=== PATIENT | female | born 1955 | race Caucasian/White ===

== ENCOUNTER → 2016-10-22 | Outpatient (CLI) | payer BC ==
--- NOTE | 2016-10-22 10:03 | CTL ---
EXAMINATION TYPE: CT Low Dose Lung DATE OF EXAM ORDERED: 10/22/2016 9:33 AM HISTORY: Tobacco abuse. Lung cancer screening CT DLP: [address]DI: 2.83 mGy Automated exposure control for dose reduction was used. SCREENING VISIT: First visit COMPARISON: None TECHNIQUE: Low dose computed tomography scan was performed through the chest at 1 mm thick sections a nd reconstructed images in the coronal plane at [address] DIAGNOSTIC QUALITY: Satisfactory FINDINGS: LUNG NODULES: None. Within the right upper lobe there is a noncalcified subsolid 3 mm pulmonary nodule Nodule Type: Subso lid on image # CT Image slide number [id number]. No other pulmonary nodules are identified. LUNGS: COPD: Severity: Mild. Biapical pleural-parenchymal thickening is also noted. Fibrosis: Severity: None. Lymph nodes: No enlarged lymph nodes are seen. Prominent precarinal 9 mm lymph node is noted. Other findings: RIGHT PLEURAL SPACE: Effusion: None Calcification: None Thickening: None Pneumothorax: None LEFT PLEURAL SPACE: Effusion: None Calcification: None Thickening: None Pneumothorax: None HEART: Heart Size: Not enlarged Coronary calcification: Minimal atheromatous changes are also seen of the thoracic aorta. Pericardial effusion: None OTHER FINDINGS: Upper abdomen: Limited images of the unenhanced upper abdomen are grossly unremarkable. Bony thorax: No suspicious osseous lesions. Supraclavicular region: No adenopathy Other: None IMPRESSION: Solitary 3 mm noncalcified subsolid right upper lobe pulmonary nodule. FOLLOW UP CT CHEST RECOMMENDATION: Annual low dose CT screening is recommended in this patient with a history of tobacco abuse as clinically indicated. CT LUNG RAD: 2
== END | disposition home or self-care (01) ==
LOC: RADCTMAIN 09:09
PROVIDERS: ATTEND Family Medicine
DX: Z12.2 Encounter for screening for malignant neoplasm of respiratory organs (principal); R91.1 Solitary pulmonary nodule; F17.200 Nicotine dependence, unspecified, uncomplicated

== ENCOUNTER → 2017-08-26 | Outpatient (CLI) | payer BC, MEDICARE ==
[2017-08-26 15:44] LABS: Blood Urea Nitrogen 15 mg/dL (7-17)
--- NOTE | 2017-08-26 16:36 | CT ---
EXAMINATION TYPE: CT chest w con DATE OF EXAM: 08/26/2017 COMPARISON: 10/22/2016 HISTORY: Hemoptysis x1 week ago. CT DLP: 344.3 mGycm Automated exposure control for dose reduction was used. CONTRAST: CT scan of the chest is performed with IV Contrast, patient injected with 80 mL of Omnipaque 300. FINDINGS: LUNGS: There is a stable 3 mm noncalcified right upper lobe pulmonary nodule. Additional calcified gr anuloma left lower lobe. Emphysematous changes are noted. There is no pneumothorax. No consolidative pneumonia or pleural effusion. Subsegmental changes along the left cardiophrenic angle is typical of atelectasis. Tracheobronchial tree appears patent. MEDIASTINUM: There are no greater than 1 cm hilar or mediastinal lymph nodes. No pericardial effusi on is seen. Atherosclerotic change of the aorta. OTHER: Hypertrophic and degenerative change of the spine noted. IMPRESSION: 1. COPD 2. Stable 3 mm noncalcified right upper lobe pulmonary nodule 3. Calcified granuloma left lower lobe
== END | disposition home or self-care (01) ==
LOC: RADCTMAIN 14:58
PROVIDERS: ATTEND Family Medicine
DX: J44.9 Chronic obstructive pulmonary disease, unspecified (principal); R91.1 Solitary pulmonary nodule; J84.10 Pulmonary fibrosis, unspecified; R04.2 Hemoptysis
CPT/HCPCS: 82565; 84520; 71260; 36415; Q9967

== ENCOUNTER 2018-02-13 18:26 | Observation (INO) | payer BC, MEDICARE ==
--- NOTE | 2018-02-13 18:27 | ED ---
General Adult HPI - General Stated complaint: chest pain Time Seen by Provider: 02/13/18 18:27 - History of Present Illness Initial comments: Patient is a 62-year-old female who presents to the emergency department today for evaluation of retrosternal chest pain. Patient reports that she was sitting on the porch with her family, she had drink and about half of a twisted tea which is an alcoholic beverage. She reports that she suddenly had a sharp pain in her retrosternum radiating to her back. Pain was 10 out of 10 in intensity, came on suddenly without provocation. Patient reports that she tried to drink Coca-Cola but then vomited. At that time decision was made to call EMS for transport to the hospital. Patient denies any history of any pain similar to this. She has no known cardiac history. Patient received ASA, nitro and fentany en route to the hospital with subsequent resolution of her pain. - Related Data Home Medications Medication Instructions Recorded Confirmed ALPRAZolam [Xanax] 0.5 mg PO BID 12/27/14 02/13/18 Atorvastatin [Lipitor] 40 mg PO HS 12/27/14 02/13/18 Escitalopram [Lexapro] 20 mg PO BID 12/27/14 02/13/18 Oxybutynin Chloride 5 mg PO BID 12/27/14 02/13/18 Aspirin [Adult Low Dose Aspirin EC] 81 mg PO DAILY 02/13/18 02/13/18 Fluticasone Nasal [place] [Flonase 1 spray EA NOSTRIL DAILY PRN 02/13/18 02/13/18 Nasal [place]] Allergies Allergy/AdvReac Type Severity Reaction Status Date / Time iodine Allergy Rash/Hives Verified 02/13/18 20:27 latex Allergy Rash/Hives Verified 02/13/18 20:27 Review of Systems ROS Statement: Those systems with pertinent positive or pertinent negative responses have been documented in the HPI. ROS Other: All systems not noted in ROS Statement are negative. Past Medical History Past Medical History: Hyperlipidemia Additional Past Medical History / Comment(s): OVER ACTIVE BLADDER History of Any Multi-Drug Resistant Organisms: None Reported Past Surgical History: Hernia Repair Additional Past Surgical History / Comment(s): RIGHT FEMUR, LEFT KIDNEY REMOVED, SPLENECTOMY Additional Past Anesthesia/Blood Transfusion Reaction / Comment(s): "TAKES LONGER WAKING UP" Past Psychological History: Anxiety, Panic Disorder Smoking Status: Current every day smoker Past Alcohol Use History: Rare Past Drug Use History: None Reported - Past Family History Mother Family Medical History: No Reported History General Exam - General Exam Comments Initial Comments: GENERAL: Patient is well-developed and well-nourished. Patient is nontoxic and well- hydrated and is in mild distress. HENT: Normocephalic, Atraumatic. Neck is soft and supple. No significant lymphadenopathy is noted. Oropharynx is clear. Moist mucous membranes. Neck has full range of motion without eliciting any pain. EYES: The sclera were anicteric and conjunctiva were pink and moist. Extraocular movements were intact and pupils were equal round and reactive to light. Eyelids were unremarkable. PULMONARY: Wheezing in all lung branch CARDIOVASCULAR: There is a regular rate and rhythm without any murmurs gallops or rubs. Radial pulses are strong bilaterally, DP and PT pulses strong bilaterally ABDOMEN: Soft and nontender with normal bowel sounds. Minimal tenderness to palpation of epigastrium SKIN: Skin is clear with no lesions or rashes and otherwise unremarkable. Skin changes on hands consistent with tobacco abuse NEUROLOGIC: Patient is alert and oriented x3. Cranial nerves II through XII are grossly intact. Motor and sensory are also intact. Normal speech, volume and content. Symmetrical smile. MUSCULOSKELETAL: Normal extremities with adequate strength and full range of motion. No lower extremity swelling or edema. No calf tenderness. LYMPHATICS: No significant lymphadenopathy is noted PSYCHIATRIC: Normal psychiatric evaluation. Somewhat anxious but appropriate considering hospitalization Limitations: no limitations Course Vital Signs 02/13/18 02/13/18 18:29 18:38 Temperature 97.6 F Pulse Rate 68 67 Respiratory 18 18 Rate Blood Pressure 150/101 136/82 O2 Sat by Pulse 97 96 Oximetry EKG Findings - EKG Comments: EKG Findings:: EKG obtained at 1833, rate is 67, rhythm is sinus, there is normal axis, normal intervals, WI is 168, QRS is 80, QTC is 426, there are no acute ST elevations or depressions no evidence of acute ischemia or infarction. Medical Decision Making - Medical Decision Making The patient was seen and evaluated, history is obtained from the patient and EMS. Patient with a sudden onset epigastric and retrosternal pain associated with inability to swallow and subsequent vomiting. Patient with no significant GI or cardiac history, does have a history of hyperlipidemia as well as tobacco abuse Cardiac workup was ordered EKG was reviewed, no acute findings Chest x-ray with no evidence of widened mediastinum or abnormality Troponin was negative Very high suspicion that this pain may be esophageal in nature especially considering it was associated with in inability to swallow Coca-Cola and subsequent vomiting. The fact that the pain subsided with nitro could suggest that this was related to esophageal spasm however considering the patient's age and risk factors including smoking and hyperlipidemia as well as a family history there is very strong for cardiac disease I do feel the patient does warrant a cardiac workup. I discussed this with the patient who is very anxious and reports that her pain is returning. At this time I will treat with some Ativan as the patient does have a history of anxiety in the past. Pain medications were also ordered Care was discussed with Dr. Lambert who agrees with plan for admission with consults to cardiology and gastroenterology Admission orders were placed - Lab Data Result diagrams: 02/13/18 18:34 02/13/18 18:34 Lab Results 02/13/18 02/13/18 02/13/18 Range/Units 18:34 18:34 18:34 WBC 9.8 (3.8-10.6) k/uL RBC 5.42 H (3.80-5.40) m/uL Hgb 15.8 (11.4-16.0) gm/dL Hct 49.9 H (34.0-46.0) % MCV 92.0 (80.0-100.0) fL MCH 29.1 (25.0-35.0) pg MCHC 31.7 (31.0-37.0) g/dL RDW 14.4 (11.5-15.5) % Plt Count 265 (150-450) k/uL Neutrophils % 57 % Lymphocytes % 32 % Monocytes % 7 % Eosinophils % 1 % Basophils % 0 % Neutrophils # 5.6 (1.3-7.7) k/uL Lymphocytes # 3.2 (1.0-4.8) k/uL Monocytes # 0.7 (0-1.0) k/uL Eosinophils # 0.1 (0-0.7) k/uL Basophils # 0.0 (0-0.2) k/uL PT (9.0-12.0) sec INR (<1.2) APTT (22.0-30.0) sec Sodium 138 (137-145) mmol/L Potassium 4.0 (3.5-5.1) mmol/L Chloride 108 H (98-107) mmol/L Carbon Dioxide 22 (22-30) mmol/L Anion Gap 8 mmol/L BUN 10 (7-17) mg/dL Creatinine 0.70 (0.52-1.04) mg/dL Est GFR (CKD-EPI)AfAm >90 (>60 ml/min/1.73 sqM) Est GFR (CKD-EPI)NonAf >90 (>60 ml/min/1.73 sqM) Glucose 124 H (74-99) mg/dL Calcium 9.6 (8.4-10.2) mg/dL Magnesium 1.6 (1.6-2.3) mg/dL Total Bilirubin 0.5 (0.2-1.3) mg/dL AST 24 (14-36) U/L ALT 30 (9-52) U/L Alkaline Phosphatase 93 (38-126) U/L Total Creatine Kinase 43 (30-135) U/L CK-MB (CK-2) <0.2 (0.0-2.4) ng/mL CK-MB (CK-2) Rel Index Troponin I <0.012 (0.000-0.034) ng/mL Total Protein 6.8 (6.3-8.2) g/dL Albumin 3.8 (3.5-5.0) g/dL Lipase (23-300) U/L 02/13/18 02/13/18 Range/Units 18:34 18:34 WBC (3.8-10.6) k/uL RBC (3.80-5.40) m/uL Hgb (11.4-16.0) gm/dL Hct (34.0-46.0) % MCV (80.0-100.0) fL MCH (25.0-35.0) pg MCHC (31.0-37.0) g/dL RDW (11.5-15.5) % Plt Count (150-450) k/uL Neutrophils % % Lymphocytes % % Monocytes % % Eosinophils % % Basophils % % Neutrophils # (1.3-7.7) k/uL Lymphocytes # (1.0-4.8) k/uL Monocytes # (0-1.0) k/uL Eosinophils # (0-0.7) k/uL Basophils # (0-0.2) k/uL PT 10.5 (9.0-12.0) sec INR 1.1 (<1.2) APTT 23.2 (22.0-30.0) sec Sodium (137-145) mmol/L Potassium (3.5-5.1) mmol/L Chloride (98-107) mmol/L Carbon Dioxide (22-30) mmol/L Anion Gap mmol/L BUN (7-17) mg/dL Creatinine (0.52-1.04) mg/dL Est GFR (CKD-EPI)AfAm (>60 ml/min/1.73 sqM) Est GFR (CKD-EPI)NonAf (>60 ml/min/1.73 sqM) Glucose (74-99) mg/dL Calcium (8.4-10.2) mg/dL Magnesium (1.6-2.3) mg/dL Total Bilirubin (0.2-1.3) mg/dL AST (14-36) U/L ALT (9-52) U/L Alkaline Phosphatase (38-126) U/L Total Creatine Kinase (30-135) U/L CK-MB (CK-2) (0.0-2.4) ng/mL CK-MB (CK-2) Rel Index Troponin I (0.000-0.034) ng/mL Total Protein (6.3-8.2) g/dL Albumin (3.5-5.0) g/dL Lipase 26 (23-300) U/L Disposition Clinical Impression: Chest pain, Vomiting Disposition: ADMITTED IP TO THIS HOSP Referrals: Lesley Silva DO [Primary Care Provider] - 1-2 days
[2018-02-13 18:49] LABS: Basophils % (A) 0 %; Eosinophils # (A) 0.1 k/uL (0-0.7); Eosinophils % (A) 1 %; HCT 49.9 % (34.0-46.0); HGB 15.8 gm/dL (11.4-16.0); Lymphocytes # (A) 3.2 k/uL (1.0-4.8); Lymphocytes % (A) 32 %; MCH 29.1 pg (25.0-35.0); MCHC 31.7 g/dL (31.0-37.0); Mean Platelet Volume 7.5; Monocytes # (A) 0.7 k/uL (0-1.0); Monocytes % (A) 7 %; Neutrophils # (A) 5.6 k/uL (1.3-7.7); Neutrophils % (A) 57 %; Platelet Count 265 k/uL (150-450); RBC 5.42 m/uL (3.80-5.40); RDW 14.4 % (11.5-15.5); WBC 9.8 k/uL (3.8-10.6)
[2018-02-13 18:58] LABS: INR 1.1 (<1.2); Partial Thromboplastin Time 23.2 sec (22.0-30.0); Prothrombin Time 10.5 sec (9.0-12.0)
[2018-02-13 19:05] LABS: ALT 30 U/L (9-52); AST 24 U/L (14-36); Albumin 3.8 g/dL (3.5-5.0); Alkaline Phosphatase 93 U/L (38-126); Anion Gap 8 mmol/L; Blood Urea Nitrogen 10 mg/dL (7-17); Calcium 9.6 mg/dL (8.4-10.2); Carbon Dioxide 22 mmol/L (22-30); Chloride 108 mmol/L (98-107); Glucose 124 mg/dL (74-99); Magnesium 1.6 mg/dL (1.6-2.3); Sodium 138 mmol/L (137-145); Total Bilirubin 0.5 mg/dL (0.2-1.3); Total Protein 6.8 g/dL (6.3-8.2)
[2018-02-13 19:08] LABS: Creatine Kinase 43 U/L (30-135)
[2018-02-13 19:21] LABS: Creatine Kinase MB <0.2 ng/mL (0.0-2.4); Troponin I <0.012 ng/mL (0.000-0.034)
--- NOTE | 2018-02-13 19:24 | XR ---
EXAMINATION TYPE: XR chest 2V DATE OF EXAM: 02/13/2018 COMPARISON: NONE HISTORY: Chest pain TECHNIQUE: Frontal and lateral views of the chest are obtained. FINDINGS: Heart and mediastinum are normal. Lungs are clear. Costophrenic angles are clear. There ar e no hilar masses. There are chest leads. IMPRESSION: No active cardiopulmonary disease.
[2018-02-13] MEDS ORDERED: ONDANSETRON 4 MG/2 ML VIAL IVP PRN (20:23)
[2018-02-13] MEDS ORDERED: ACETAMINOPHEN TAB 325 MG TAB PO PRN (20:23)
[2018-02-13] MEDS ORDERED: MORPHINE SULFATE 4 MG/ML SYRINGE IV PRN (20:23)
[2018-02-13] MEDS ORDERED: NALOXONE 0.4 MG/ML 1 ML VIAL IV PRN (20:23)
[2018-02-13] MEDS ORDERED: NITROGLYCERIN SL TABS 0.4 MG TAB SUBLINGUAL PRN (20:26)
[2018-02-13] MEDS ORDERED: IPRATROPIUM-ALBUTEROL 3 ML NEB INHALATION STA (20:28)
[2018-02-13] MEDS ORDERED: LORazepam 2 MG/ML INJ IV STA (20:28)
[2018-02-14 00:31] LABS: Creatine Kinase 35 U/L (30-135)
[2018-02-14 00:44] LABS: Creatine Kinase MB <0.2 ng/mL (0.0-2.4); Troponin I <0.012 ng/mL (0.000-0.034)
[2018-02-14 00:46] LABS: Cholesterol 157 mg/dL (<200); HDL Cholesterol 40 mg/dL (40-60); LDL Cholesterol,Calculated 86 mg/dL (0-99); Triglycerides 153 mg/dL (<150)
[2018-02-14 07:14] LABS: Creatine Kinase 32 U/L (30-135)
[2018-02-14 07:26] LABS: Creatine Kinase MB <0.2 ng/mL (0.0-2.4); Troponin I <0.012 ng/mL (0.000-0.034)
[2018-02-14] MEDS ORDERED: DOBUTamine DRIP for NUC MED 500 MG in DEXTROSE/WATER 1 250ML.BAG IV ONE (07:36)
[2018-02-14 08:12] VITALS: RESP 18
--- NOTE | 2018-02-14 08:17 | CONS ---
CONSULTATION Mrs. Soriano is a 62-year-old female with no prior documented history of coronary artery disease who presented with an episode of chest and epigastric discomfort as well as nausea and vomiting. She was sitting on the porch drinking an alcoholic drink when she started to have epigastric and lower chest discomfort and vomited. Because of the persistent symptoms, she came into the emergency room and subsequently admitted. The patient denies any prior cardiac history. She has history of dyspnea on exertion and chronic tobacco use. She has no dizziness. No palpitation. No syncope. No PND, orthopnea, or peripheral edema. She has no prior similar symptoms. Her coronary risk factors are remarkable for smoking about a pack a day as well as hyperlipidemia. There is a family history of premature coronary artery disease. MEDICATION: Her medications at home included oxybutynin, fluticasone, Lexapro, Lipitor 40 mg daily, aspirin 81 mg daily and Xanax. REVIEW OF SYSTEMS: RESPIRATORY SYSTEM: She has no documented history of asthma, emphysema, but she has dyspnea on exertion and chronic tobacco use. GI SYSTEM: No recent GI bleeding. No peptic ulcer disease. SYSTEM: No dysuria or hematuria. NERVOUS SYSTEM: No stroke or seizure. PHYSICAL EXAMINATION: She is a 62-year-old female, alert, oriented, in no apparent distress. Blood pressure 142/80 with the heart rate in the 60s. HEAD: Normocephalic. EYES: Sclerae anicteric. NECK: Good upstroke. No bruit. No jugular venous distention. LUNGS: With decreased air exchange bilaterally with scattered wheezes. HEART: Regular rate and rhythm. S1, S2. No S3. No rub or gallop. ABDOMEN: Soft. Mild epigastric tenderness. No rebound. Positive bowel sounds. EXTREMITIES: No edema. Intact distal pulses. LAB DATA: Lab data revealed troponin less than 0.012 for 3 samples. Cholesterol 157, LDL of 86. BUN and creatinine 10 and 0.7. Potassium 4.0. Hemoglobin 15.8. EKG reveals sinus mechanism with a normal axis and intervals poor R-wave progression. IMPRESSION: 1. Chest discomfort atypical for ischemic heart disease, probable noncardiac in etiology. 2. Chronic tobacco use with finding consistent with chronic obstructive lung disease. 3. Hyperlipidemia. RECOMMENDATION: I will proceed with a stress dobutamine echocardiogram and transthoracic echo and if there is no evidence of abnormalities, then no further cardiac workup will be needed. Thank you for this consult. We will follow with you. MMODL / IJN: [id number] /
[2018-02-14] MEDS ORDERED: PANTOPRAZOLE 40 MG/10 ML VIAL IV SCH (09:00)
[2018-02-14] MEDS ORDERED: ASPIRIN 81 MG PO SCH (09:00)
[2018-02-14] MEDS ORDERED: ATORVASTATIN 40 MG TAB PO SCH (09:00)
[2018-02-14] MEDS: SODIUM CHLORIDE 0.9% 1,000 ML IV SCH ×2 (09:55→17:53)
[2018-02-14] MEDS ORDERED: FLUTICASONE 50MCG/SPRAY NASAL 16GM EA NOSTRIL PRN (11:14)
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
--- NOTE | 2018-02-14 13:20 | ECHOF ---
Referral Reason:cp MEASUREMENTS -------- HEIGHT: 167.6 cm WEIGHT: 78.5 kg BP: 124/67 RVIDd: 2.5 cm (< 3.3) IVSd: 1.0 cm (0.6 - 1.1) LVIDd: 4.3 cm (3.9 - 5.3) LVPWd: 1.2 cm (0.6 - 1.1) IVSs: 1.7 cm LVIDs: 2.7 cm LVPWs: 1.3 cm LA Diam: 3.1 cm (2.7 - 3.8) LAESV Index (A-L): 15.98 ml/m Ao Diam: 3.1 cm (2.0 - 3.7) AV Cusp: 2.0 cm (1.5 - 2.6) MV EXCURSION: 12.364 mm (> 18.000) MV EF SLOPE: 68 mm/s (70 - 150) EPSS: 0.4 cm MV E Abelino: 0.79 m/s MV DecT: 287 ms MV A Abelino: 0.77 m/s MV E/A Ratio: 1.03 FINDINGS -------- Sinus rhythm. This was a technically good study. The left ventricular size is normal. There is borderline concentric left ventricular hypertrophy. Overall left ventricular systolic function is normal with, an EF between 55 - 60 %. The right ventricle is normal in size. Normal LA size by volume 22+/-6 ml/m2. The right atrium is normal in size. The aortic valve is trileaflet, and appears structurally normal. No aortic stenosis or regurgitation. The mitral valve is normal. No mitral regurgitation. The tricuspid valve appears structurally normal. No regurgitation noted Trace/mild (physiologic) pulmonic regurgitation. The aortic root size is normal. Normal inferior vena cava with normal inspiratory collapse consistent with estimated right atrial pre ssure of 5 mmHg. There is no pericardial effusion. CONCLUSIONS -------- 1. Sinus rhythm. 2. This was a technically good study. 3. The left ventricular size is normal. 4. There is borderline concentric left ventricular hypertrophy. 5. Overall left ventricular systolic function is normal with, an EF between 55 - 60 %. 6. Normal LA size by volume 22+/-6 ml/m2. 7. The aortic valve is trileaflet, and appears structurally normal. No aortic stenosis or regurgitati on. 8. The mitral valve is normal. 9. The tricuspid valve appears structurally normal. 10. Trace/mild (physiologic) pulmonic regurgitation. 11. The aortic root size is normal. 12. Normal inferior vena cava with normal inspiratory collapse consistent with estimated right atrial pressure of 5 mmHg. 13. There is no pericardial effusion. STUDENT TRUCK DRIVER: Coleen Tyler RDCS
--- NOTE | 2018-02-14 13:32 | ECHOS ---
STRESS ECHOCARDIOGRAM DATE OF SERVICE: 02/14/2018 INDICATIONS: Chest pain. MEDICATIONS: BASELINE HEART RATE: 57 BASELINE BLOOD PRESSURE: 124/63 MAXIMUM HEART RATE: 153 MAXIMUM BLOOD PRESSURE: 214/50 85% MPHR: 133 100% MPHR: 156 METS: MAXIMUM STAGE REACHED: TOTAL EXERCISE TIME: CLINICAL INFORMATION: Baseline rhythm is sinus mechanism, rate of 57, normal axis and intervals, normal electrocardiogram. Baseline blood pressure 124/63 mmHg. Patient received an infusion of dobutamine per protocol. Peak rate 153 beats per minute which is equal to 98% maximum predicted heart rate. Peak blood pressure 214/50 mmHg. Electrocardiograph monitoring revealed no evidence of diagnostic ischemic ST deviation. Baseline echocardiogram revealed normal wall motion. At peak exercise, there was normal wall motion augmentation with no hypokinesis or dyskinesis. CONCLUSION: 1. Normal electrocardiograph response to dobutamine infusion. 2. Normal stress echocardiogram with no evidence of stress induced ischemia. MMODL / IJN: [id number] /
[2018-02-14 15:54] VITALS: TEMP 98.7
[2018-02-14 16:58] VITALS: BP 151/82; PULSE 60
--- NOTE | 2018-02-14 17:58 | P.DS ---
Providers Date of admission: 02/13/18 20:23 Expected date of discharge: 02/14/18 Attending physician: Marta Lambert Consults: 02/13/18 20:24 Consult Physician Routine Consulting Provider: [facility] Consult Reason/Comments: chest pain Do you want consulting provider notified?: Yes Consult Physician Routine Consulting Provider: Valeriano Snow Consult Reason/Comments: chest pain, concern for esophageal spasm Do you want consulting provider notified?: Yes Primary care physician: Lesley Silva Hospital Course: Diagnosis on discharge: 1. Chest pain. Troponins negative. EKG completed showing normal sinus rhythm cannot rule out anterior infarct. Chest x-ray completed showing no active cardiopulmonary process. Cardiology service following. 2-D echo has been ordered. Stress dobutamine echocardiogram has been ordered. Per cardiology for ischemic heart disease probable noncardiac in etiology. 2. Episode of emesis. GI services have been consulted. Awaiting GI consult 3. History of hyperlipidemia. Continue Lipitor 4. Nicotine dependence. Patient educated greater than 3 minutes on smoking cessation. 5. Anxiety and panic disorder. Continue home medications 6. History of left nephrectomy Hospital course: This is a 62-year-old patient of Dr. Silva. Patient presented to the emergency room complaints of chest pain and emesis. Patient states she was sitting on the porch drinking and alcoholic average when she had an episode of sharp pain in her chest that radiated to her back. Patient stated she tried to drink a soda and then had an episode of emesis. Patient is a known past medical history of hyperlipidemia, splenectomy and left kidney removal. Patient does report that she is current every day smoker. Chest x-ray completed showing no active cardiopulmonary disease. EKG completed showing normal sinus rhythm, cannot rule out anterior infarct. Cardiology services have been consulted. Stress echo has been ordered per cardiology. Troponins are negative. GI services also consulted At this time patient does report she does have a dull ache in her back and chest. Patient denies any shortness of breath at this time. Denies any urinary frequency or burning. Patient was admitted to 24-hour observation she underwent a stress test H was negative per cardiology she was evaluated by cardiology and was cleared for discharge. Due to symptoms of epigastric pain consultation for gastroenterology was initiated patient was seen by Dr. James no intervention or EGD was recommended at this time as inpatient she was cleared for discharge. Patient was discharged home on 02/14/2018 protonic 40 mg once daily was added to her medication regimen She will follow-up with her primary care physician within one week She will also follow with gastroenterology for EGD as outpatient Plan - Discharge Summary Discharge Rx Participant: Yes New Discharge Prescriptions: New Pantoprazole Sodium [Protonix] 40 mg PO AC-BRKFST #30 tablet. Continue Oxybutynin Chloride 5 mg PO BID Escitalopram [Lexapro] 20 mg PO BID Atorvastatin [Lipitor] 40 mg PO HS ALPRAZolam [Xanax] 0.5 mg PO BID Fluticasone Nasal [place] [Flonase Nasal [place]] 1 spray EA NOSTRIL DAILY PRN PRN Reason: Allergy Symptoms Aspirin [Adult Low Dose Aspirin EC] 81 mg PO DAILY Discharge Medication List ALPRAZolam [Xanax] 0.5 mg PO BID 12/27/14 [History] Atorvastatin [Lipitor] 40 mg PO HS 12/27/14 [History] Escitalopram [Lexapro] 20 mg PO BID 12/27/14 [History] Oxybutynin Chloride 5 mg PO BID 12/27/14 [History] Aspirin [Adult Low Dose Aspirin EC] 81 mg PO DAILY 02/13/18 [History] Fluticasone Nasal [place] [Flonase Nasal [place]] 1 spray EA NOSTRIL DAILY PRN 02/13 [History] Pantoprazole Sodium [Protonix] 40 mg PO AC-BRKFST #30 tablet. 02/14/18 [Rx] Follow up Appointment(s)/Referral(s): Russell Marie MD [STAFF PHYSICIAN] - 2 Weeks Lesley Silva DO [Primary Care Provider] - 1-2 days
[2018-02-14] MEDS ORDERED: OXYBUTYNIN CHLORIDE 5 MG TAB PO SCH (21:00)
[2018-02-14] MEDS ORDERED: ALPRAZolam 0.5 MG TAB PO SCH (21:00)
[2018-02-14] MEDS ORDERED: ESCITALOPRAM 20 MG TAB PO SCH (21:00)
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
[2018-02-15] MEDS ORDERED: ENOXAPARIN 40 MG/0.4 ML SYRINGE SQ SCH (09:00)
== END 2018-02-14 18:15 | disposition home or self-care (01) ==
LOC: EC 18:26 → 3OBS 20:23
PROVIDERS: ADMIT Internal Medicine; ATTEND Internal Medicine
DX: R07.89 Other chest pain (principal); K21.0 Gastro-esophageal reflux disease with esophagitis; K44.9 Diaphragmatic hernia without obstruction or gangrene; J30.2 Other seasonal allergic rhinitis; R13.10 Dysphagia, unspecified; R11.10 Vomiting, unspecified; N32.81 Overactive bladder; E78.5 Hyperlipidemia, unspecified; F17.210 Nicotine dependence, cigarettes, uncomplicated; F41.9 Anxiety disorder, unspecified; F41.0 Panic disorder [episodic paroxysmal anxiety]; E66.9 Obesity, unspecified; Z68.32 Body mass index [BMI] 32.0-32.9, adult; Z79.82 Long term (current) use of aspirin; Z79.51 Long term (current) use of inhaled steroids; Z79.899 Other long term (current) drug therapy; Z91.040 Latex allergy status; Z91.048 Other nonmedicinal substance allergy status; Z90.81 Acquired absence of spleen; Z87.19 Personal history of other diseases of the digestive system; Z90.5 Acquired absence of kidney; Z82.49 Family history of ischemic heart disease and other diseases of the circulatory system
CPT/HCPCS: 99285 ×2; 96374 ×2; 96375 ×3; 36415; 93005; 93306; 93351; 80061; 80053; 82550 ×2; 82553 ×2; 83690; 83735; 84484 ×2; 85025; 85610; 85730; 71046; G0378 ×2; J2060; J1250; J2270; C9113

== ENCOUNTER → 2020-04-18 | Outpatient (CLI) | payer MEDICARE ==
--- NOTE | 2020-04-18 14:20 | CTL ---
EXAMINATION TYPE: CT Low Dose Lung DATE OF EXAM ORDERED: 04/18/2020 HISTORY: Personal history of tobacco use.. Lung cancer screening CT DLP: 97.[address] CTDI: 2.9 mGy Automated exposure control for dose reduction was used. SCREENING VISIT: Yes COMPARISON: CT chest 08/26/2017 TECHNIQUE: Low dose computed tomography scan was performed through the chest at 1 mm thick sections a nd reconstructed images in the coronal plane at [address] DIAGNOSTIC QUALITY: Satisfactory FINDINGS: LUNG NODULES: Present, detailed below: 3 mm solid pulmonary nodule of the right upper lobe (4:36) unchanged versus 2017 comparison. 3 mm nodule of the right lower lobe (4:214) may represent area of atelectasis versus true pulmonary n odule. LUNGS: COPD: Severity: Mild Fibrosis: Severity: None Lymph nodes: None Other findings: None RIGHT PLEURAL SPACE: Effusion: None Calcification: Mild apical Thickening: Mild apical Pneumothorax: None LEFT PLEURAL SPACE: Effusion: None Calcification: Mild apical Thickening: Mild apical Pneumothorax: None HEART: Heart Size: Normal Coronary calcification: Mild Pericardial effusion: None OTHER FINDINGS: Upper abdomen: None Bony thorax: Degenerative changes of the spine Supraclavicular region: None Other: None IMPRESSION: Unchanged 3 mm solid pulmonary nodule of the right upper lobe FOLLOW UP CT CHEST RECOMMENDATION: Annual CT low dose lung screening CT LUNG RAD: Lung-Rad 2 Benign Appearance or Behavior
== END | disposition home or self-care (01) ==
LOC: RADCTMAIN 09:10
PROVIDERS: ATTEND Family Medicine
DX: Z12.2 Encounter for screening for malignant neoplasm of respiratory organs (principal); R91.8 Other nonspecific abnormal finding of lung field; F17.210 Nicotine dependence, cigarettes, uncomplicated

== ENCOUNTER → 2021-01-09 | Outpatient (CLI) | payer MEDICARE ==
--- NOTE | 2021-01-09 10:57 | CT ---
EXAMINATION TYPE: CT abdomen wo con DATE OF EXAM: 01/09/2021 COMPARISON: None INDICATION: Epigastric pain DLP: 339.70 mGycm, Automated exposure control for dose reduction was used. CONTRAST: 0 mL of Isovue 300. Study performed with Oral Contrast TECHNIQUE: Axial images were obtained from above the diaphragm to the pubic rami in the axial plane a t 5 mm thick sections. Reconstructed images are reviewed on the computer in the coronal plane. FINDINGS: Limited CT sections are obtained the lung bases. Tiny density may been a posterior lateral right serge g base. Series [address] ABDOMEN: Liver: Normal Spleen: Not identified. Correlate with the surgical history. Pancreas: Normal Adrenal glands: The adrenal glands are normal. Gallbladder: Normal Kidneys: Right kidney is absent.. No hydronephrosis is present. No cysts are present. No renal sto naomie are evident. Aorta: Vascular calcification is within the aorta. There is some minimal fusiform prominence of the distal abdominal aorta measuring 2.6 cm. This terminates at the bifurcation. Inferior vena cava: Normal. Loops of bowel within the abdomen are normal. There are loops of bowel which are incompletely dis tended or lack oral contrast limiting their evaluation. Appendix: Not identified. Follow-up may be a normal appendix is posterior to the terminal ileum and i nferior to the cecum. Suspicious inflammatory changes are not identified. IMPRESSIONS: 1. No suspicious acute changes to account for epigastric pain.
== END | disposition home or self-care (01) ==
LOC: RADCTMAIN 08:47
PROVIDERS: ATTEND Family Medicine
DX: R10.13 Epigastric pain (principal)
CPT/HCPCS: 74150

== ENCOUNTER 2021-02-18 09:13 | Day surgery (SDC) | payer MEDICARE ==
[2021-02-17 10:55] VITALS: BMI 31.2
[~2021-02-18 09:13] MED LIST: LACTATED RINGERS 1,000 ML IV SCH; LIDOCAINE 1% (10MG/ML) FOR IV START INTRADERMA PRN
[2021-02-18 09:38] VITALS: TEMP 97.7
[2021-02-18] MEDS ORDERED: LIDOCAINE 1% INJ 10MG/ML (20 ML MDV) ONE (10:06)
[2021-02-18] MEDS ORDERED: PROPOFOL 10 MG/ML 20 ML VIAL IV ONE (10:06)
--- NOTE | 2021-02-18 10:20 | P.PCN ---
Date of Procedure: 02/18/21 Procedure(s) Performed: BRIEF HISTORY: Patient is a 65-year-old, pleasant, female scheduled for an upper endoscopy as a part of value should of epigastric pain for the last 2 months duration. She is on pantoprazole 40 mg daily for 2 years for GERD with no change in his symptoms.. PROCEDURE PERFORMED: Esophagogastroduodenoscopy with biopsy. PREOPERATIVE DIAGNOSIS: Chronic epigastric pain and lungs any history of GERD. IV sedation per anesthesia. PROCEDURE: After informed consent was obtained, the patient was brought into the endoscopy unit. IV sedation was administered by Anesthesia under continuous monitoring. Initially the Olympus GIF-140 video endoscope was inserted into the mouth. Esophagus intubated without any difficulty. It was gradually advanced into the stomach and duodenum and carefully examined. The bulb and the second part of the duodenum appeared normal. The scope at this time was withdrawn to the stomach, adequately insufflated with air, and upon careful examination, mucosa of the antrum had mild gastritis and biopsies were done from this area., body, cardia and the fundus appeared normal. The scope was then withdrawn into the esophagus. The GE junction was located at 39 cm from the incisors. Small sliding type hiatal hernia noted. The esophagus appeared normal. There were no erosions or ulcerations seen and the patient tolerated the procedure well. IMPRESSION: 1. Mild antral gastritis. 2. Small hiatal hernia. RECOMMENDATIONS: The findings of this examination were discussed with the patient as well as her family. She was advised to follow with the biopsy results. In the meantime she was advised to increase the mouth and Is a 40 mg twice daily and follow antireflux measures..
[2021-02-18 10:41] VITALS: BP 128/76; PULSE 71; RESP 18
== END 2021-02-18 11:15 | disposition home or self-care (01) ==
LOC: ORWHC2ENDO 09:13
PROVIDERS: ATTEND Internal Medicine Gastroenterology
DX: K29.50 Unspecified chronic gastritis without bleeding (principal); K44.9 Diaphragmatic hernia without obstruction or gangrene; K21.00 Gastro-esophageal reflux disease with esophagitis, without bleeding; G89.29 Other chronic pain; I10 Essential (primary) hypertension; E78.5 Hyperlipidemia, unspecified; F17.200 Nicotine dependence, unspecified, uncomplicated; F41.8 Other specified anxiety disorders
CPT/HCPCS: 43239; 88305; J2001; J2704

== ENCOUNTER → 2024-03-07 | Outpatient (CLI) | payer MEDICARE ==
--- NOTE | 2024-03-13 08:25 | MM ---
Reason for Exam: Screening (asymptomatic). Last mammogram was performed 9 year(s) and 3 month(s) ago. Patient History: Menarche at age 11. First Full-Term at age 14. Postmenopausal. Estrogen for 8 years from age 42 until age 50. Sister had breast cancer, age 45. Risk Values: Christina 5 year model risk: 3.2%. NCI Lifetime model risk: 9.2%. Prior Study Comparison: 03/18/2010 Bilateral Screening Mammogram, [facility]. 02/29/2012 Bilateral Screening Mammogram, [facility]. 11/26/2014 Bilateral Screening Mammogram, [facility]. Tissue Density: The breasts are heterogeneously dense, which may obscure small masses. Findings: Analyzed By CAD. There is no suspicious group of microcalcifications or new suspicious mass in either breast. Benign-appearing calcifications. Chronic appearing nodularity. Overall Assessment: Benign, BI-RAD 2 Management: Screening Mammogram of both breasts in 1 year. . Patient should continue monthly self-breast exams. A clinical breast exam by your physician is recommended on an annual basis. This exam should not preclude additional follow-up of suspicious palpable abnormalities. Note on Christina scores and lifetime risk: 1. A Christina score greater than 3% is considered moderate risk. If this is the case, consider specialist referral to assess eligibility for a risk reducing agent. 2. If overall lifetime risk for the development of breast cancer is 20% or higher, the patient may qualify for future screening with alternating mammogram and breast MRI. [facility], , 03/13/2024 8:21 AM. Electronically signed and approved by: Derikc Clark M.D. Radiologis
== END | disposition home or self-care (01) ==
LOC: RADMAMWWP 11:18
PROVIDERS: ATTEND Family Medicine
DX: Z12.31 Encounter for screening mammogram for malignant neoplasm of breast
CPT/HCPCS: 77063; 77067

== ENCOUNTER 2024-03-30 10:03 | Day surgery (SDC) | payer MEDICARE ==
[2024-03-28 16:08] VITALS: BMI 32.5
[2024-03-30 10:33] VITALS: RESP 16; TEMP 97.8
[2024-03-30] MEDS: LACTATED RINGERS 1,000 ML IV SCH (10:40)
[2024-03-30] MEDS: IV FLUID CONTINUATION 1,000 ML IV ONE ×2 (10:40→11:52)
[2024-03-30] MEDS ORDERED: PROPOFOL 10 MG/ML 20 ML VIAL IV ONE (11:28)
[2024-03-30] MEDS ORDERED: LIDOCAINE 1% INJ 10MG/ML (20 ML MDV) ONE (11:28)
--- NOTE | 2024-03-30 11:47 | P.PCN ---
Date of Procedure: 03/30/24 Procedure(s) Performed: BRIEF HISTORY: Patient is a 68-year-old pleasant white female scheduled for an elective colonoscopy as a part of screening for colon cancer/positive Cologuard. PROCEDURE PERFORMED: Colonoscopy with snare polypectomy. PREOPERATIVE DIAGNOSIS: Screening for colon cancer/positive Cologuard. IV sedation per Anesthesia. PROCEDURE: After informed consent was obtained, the patient, was brought into the endoscopy unit. IV sedation was administered by Anesthesia under continuous monitoring. Digital rectal examination was normal. Initially the Olympus CF-160 flexible video colonoscope was then inserted in the rectum, gradually advanced into the cecum without any difficulty. Careful examination was performed as the scope was gradually being withdrawn. Ileocecal valve and the appendiceal orifice were visualized and appeared normal. Prep was excellent. Mucosa of the cecum appeared normal. Descending colon there were 3 polyps measuring 3 mm, 7 mm and 1 cm in size all of which were removed by snare polypectomy. In the transverse colon there was a 3 mm and 4 mm polyp removed by cold snare polypectomy. Rest of the, ascending colon, transverse colon, descending colon, sigmoid colon, and rectum appeared normal. Retroflexion was performed in the rectum and no lesions were seen. The patient tolerated the procedure well. IMPRESSION: 3 mm, 7 mm and 1 cm ascending colon polyp status post snare polypectomy 3 mm, 4 mm x 2 transverse colon polyp status post cold snare polypectomy Rest of the colon appeared normal RECOMMENDATIONS: Findings of this examination were discussed with the patient as well as his family. She was advised to follow-up with the biopsy results. If the biopsy reveals adenoma she can have repeat colonoscopy in 3 years..
[2024-03-30 12:03] VITALS: BP 139/80; PULSE 61
== END 2024-03-30 12:20 | disposition home or self-care (01) ==
LOC: ORWHC2ENDO 10:03
PROVIDERS: ATTEND Internal Medicine Gastroenterology
CPT/HCPCS: 45385; 88305

== ENCOUNTER → 2024-10-18 | Outpatient (CLI) | payer MEDICARE ==
--- NOTE | 2024-10-18 15:55 | CTL ---
EXAMINATION TYPE: CT Low Dose Lung DATE OF EXAM ORDERED: 10/18/2024 COMPARISON: 04/18/2020 CLINICAL INDICATION: Female, 69 years old with history of Z12.2 ENCNTR SCREEN FOR MALIGNANT NEOPLASM OF RESP; PHH, follow up nodules, Lung cancer screening, History of Smoking/tobacco use. TECHNIQUE: Low dose computed tomography scan was performed through the chest at 1 mm thick sections a nd reconstructed images in multiple planes at 1 mm and [address] DLP: 109.[address] CTDI: 2.8 mGy Automated exposure control for dose reduction was used. CT DIAGNOSTIC QUALITY: Satisfactory FINDINGS: EXAMINATION TYPE: CT Low Dose Lung DATE OF EXAM ORDERED: 10/18/2024 CLINICAL INDICATION: Female, 69 years old with history of Z12.2 ENCNTR SCREEN FOR MALIGNANT NEOPLASM OF RESP, history of tobacco use, Lung cancer screening CT DLP: 109.[address] CTDI: 2.8 mGy Automated exposure control for dose reduction was used. Comparison: None TECHNIQUE: Low dose computed tomography scan was performed through the chest at 1 mm thick sections a nd reconstructed images in multiple planes at 1 mm and [address] DIAGNOSTIC QUALITY: Satisfactory FINDINGS: There are moderate emphysematous changes. There is mild pleural-parenchymal scarring in blood formati on in the lung apices. There are stable scattered sub-5 mm nodules however there is interval development of ill-defined pleu ral-parenchymal density in the right middle lobe, right lower lobe and lingula. There has been interv al development of a small localized area of tree-in-bud density in the right middle lobe and in the l eft lower lobe anteriorly. The great vessel chest are normal. There is a stable 12 mm precarinal lymph node and stable 10 mm subcarinal lymph node. There is no pleural effusion or pneumothorax.. No focal osseous lesions are seen. Limited scans the upper abdomen reveals no gross abnormality IMPRESSION: Lung rads Category 0, findings suggest inflammatory changes possibly acute or chronic. Follow-up CT t horax in 3 months is recommended to confirm stability or demonstrate resolution. [facility], , 10/18/2024 3:53 PM
== END | disposition home or self-care (01) ==
LOC: RADCTMAIN 15:01
PROVIDERS: ATTEND Family Medicine
DX: Z12.2 Encounter for screening for malignant neoplasm of respiratory organs (principal); F17.210 Nicotine dependence, cigarettes, uncomplicated
CPT/HCPCS: 71271